=== PATIENT | male | born 1985 | race Caucasian/White ===

== ENCOUNTER → 2020-04-21 15:54 | Outpatient (BNVA) | payer OTHER, SELFPAY | PROVIDERS: Family Provider Family Medicine; Visit Provider Nurse Practitioner Family | DX: Z20.828 Contact with and (suspected) exposure to other viral communicable diseases (principal) | CPT/HCPCS: 87635 ==

== ENCOUNTER 2020-05-18 08:46 | Inpatient (IN) | payer OTHER, SELFPAY ==
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
[2020-05-18 09:01] VITALS: BP 117/84; PULSE 91; RESP 18; TEMP 37.1; O2SAT 95; BMI 28.7
--- NOTE | 2020-05-18 09:13 | PC.NURSE ---
See Sara aCzares at [facility]
[2020-05-18 09:14] VITALS: BP 117/84; PULSE 90; RESP 18; TEMP 37.1; O2SAT 95
[2020-05-18 09:20] LABS: Add Urine Microscopic? NO
[2020-05-18 09:21] VITALS: BP 120/76; PULSE 90; RESP 18
[2020-05-18 09:21] LABS: Basophils # 0.1 10^3/uL (0.0-0.1); Basophils % 1.1 %; Eosinophils # 0.3 10^3/uL (0.0-0.8); Eosinophils % 3.6 %; Hemoglobin 14.7 g/dL (11.7-16.6); Lymphocytes # 2.2 10^3/uL (0.8-4.8); Lymphocytes % 29.4 %; Mean Corpuscular Hemoglobin 28.5 pg (28.0-34.0); Mean Corpuscular Volume 89.1 fL (80-94); Mean Platelet Volume 11.5 fL (7.4-10.4); Monocytes # 0.5 10^3/uL (0.2-0.9); Monocytes % 7.1 %; Nucleated Red Blood Cells % 0 %; Platelet Count 245 10^3/cmm (130-400); Red Blood Count 5.16 10^6/uL (4.1-5.3); Red Cell Distribution Width 11.8 % (12.1-15.1); White Blood Count 7.5 10^3/uL (4.0-10.0)
[2020-05-18 09:38] LABS: Bilirubin Urine Neg (Negative); Blood Urine Neg (Negative); Glucose Urine UA Norm (Normal); Ketones Urine Negative (Negative); Leukocyte Esterase Urine Negative (Negative); Nitrate Urine Negative (Negative); Protein Urine Neg (Negative); Urine Appearance Clear (CLEAR); Urine Color Yellow (Yellow); Urobilinogen Urine Norm (Negative); pH Urine 6 (5-7)
[2020-05-18 09:44] LABS: Alanine Aminotransferase 19 U/L (0-41); Albumin Level 4.4 g/dL (3.5-5.2); Alkaline Phosphatase 107 IU/L (40-130); Anion Gap 14.1 (5-19); Aspartate Amino Transferase 19 U/L (0-40); Blood Urea Nitrogen 14 mg/dL (6-20); Calcium 9.6 mg/dL (8.5-10.5); Carbon Dioxide 26 mmol/L (22-29); Chloride 101 mmol/L (98-107); Creatinine Clr Calc Pharmacy 150.1635; Globulin 3.2 g/dL (1.3-4.6); Glucose 109 mg/dL (65-115); Osmolality Calculated 285 mOsm/kg (285-295); Potassium 4.1 mmol/L (3.5-5.1); Sodium 137 mmol/L (136-145); Total Bilirubin 0.5 mg/dL (0.15-1.2); Total Protein 7.6 g/dL (6.6-8.7)
[2020-05-18 09:46] LABS: Acetaminophen < 5.0 ug/mL (10-30); Alcohol Level < 10 mg/dL (0-10); Salicylate < 0.3 mg/dL (3-10)
[2020-05-18 09:47] LABS: Amphetamines Screen Urine Negative (Negative); Barbiturates Screen Urine Negative (Negative); Benzodiazepines Screen Urine Negative (Negative); Cocaine Screen Urine Negative (Negative); Opiate Screen Urine Negative (Negative); PCP Screen Urine Negative (Negative); THC Screen Urine Negative (Negative)
[2020-05-18 12:08] VITALS: BP 121/82; PULSE 76; RESP 18; TEMP 36.6; O2SAT 97
[2020-05-18 13:33] VITALS: BP 120/80; PULSE 78; RESP 18; TEMP 36.6; O2SAT 98
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
[2020-05-18] MEDS: ARIPiprazole 2 mg Tablet PO (14:32)
[2020-05-18 19:43] VITALS: BP 112/70; PULSE 64; RESP 15; O2SAT 96
[2020-05-18] MEDS: mirtazapine 15 mg Tablet PO (20:30)
[2020-05-19 06:00] VITALS: BP 125/77; PULSE 61; RESP 15; TEMP 36.7; O2SAT 95
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
[2020-05-19 10:21] VITALS: BP 125/77; PULSE 61; RESP 15; TEMP 36.7; O2SAT 95
== END 2020-05-19 11:50 | disposition home or self-care (01) | DRG 881 ==
LOC: ER 10:45 → NP 11:38
PROVIDERS: Admitting Provider Psychiatry & Neurology Psychiatry; Emergency Provider Physician Assistant; Family Provider Family Medicine; Visit Provider Psychiatry & Neurology Psychiatry
DX: F34.1 Dysthymic disorder (principal); R45.851 Suicidal ideations; F32.9 Major depressive disorder, single episode, unspecified; Z87.820 Personal history of traumatic brain injury; K40.90 Unilateral inguinal hernia, without obstruction or gangrene, not specified as recurrent
CPT/HCPCS: 12345; 80053; 80306; 80307; 81003; 85025; 99284

== ENCOUNTER 2020-05-21 18:22 | Inpatient (IN) | payer OTHER, SELFPAY ==
[2020-05-21 18:27] VITALS: BP 127/77; PULSE 71; RESP 18; TEMP 36.3; O2SAT 98; BMI 25.8
--- NOTE | 2020-05-21 18:57 | W.ED.PSYCH ---
HPI - Psych General: Chief Complaint: Psychiatric Symptoms Stated Complaint: SI/HI Time Seen by Provider: 05/21/20 18:31 Source: patient Mode of arrival: ambulatory Limitations: no limitations History of Present Illness: HPI Narrative: 34-year-old male states has been having increasing depression with suicidal thoughts. His caught him today try to take pills to kill himself. He did not end up taking any. He is also had aggressive behaviors towards her son. Patient denies any medical complaints at this time. Denies any worsening or improving factors. MD complaint: suicidal ideation Associated symptoms: Reports depression and suicidal ideation Review of Systems Const: Denies: fever(s), chills, body aches or change in appetite Eyes: Denies: blurry vision or eye discomfort ENMT: Denies: throat pain or dental pain Card: Denies: chest pain Resp: Denies: dyspnea GI: Denies: abdominal pain, nausea, vomiting or diarrhea : Denies: dysuria Musc: Denies: neck pain or back pain Skin/Breast: Denies: rash Neuro: Denies: headache(s) Psych: Reports: depression and suicidal ideation Renato/Lymph: Denies: easy bruising All/Imm: Denies: urticaria PFSH ED PFSH: Medical History (Updated 05/21/20 @ 20:15 by Jayla Swain MD) Right inguinal hernia Family History Denies family history of Anesthesia complication Bleeding disorder Social History Smoking and tobacco status: never smoked Second hand smoke exposure: No Alcohol intake: never Desire information about alcohol rehabilitation?: No Desire information about substance/drug rehabilitation?: No Adopted: No Caregiver/support person: Yes Lives independently: Yes Household members: spouse Housing: House Marital status: Highest education level completed: High School Graduate service: No Current occupational status: employed Current occupation: [employer] Current occupational exposures/hazards: No Pets and animals: Yes History of recent travel: Yes Leisure activites: exercise, hunting and fishing Sexually active: Yes Current gender identity: Male Doreen/Zoroastrianism: Caodaism Special doreen needs: No Agree to transfusion: No Financial difficulty paying for basics: Not Very Hard Physical Exam Const: COMMON NORMALS: no acute distress, patient oriented x3 and healthy appearing HENMT: COMMON NORMALS: normocephalic and atraumatic HEAD & SCALP: normocephalic and atraumatic Eye: COMMON NORMALS: Equal, round and reactive pupils present and EOMs intact bilaterally PUPIL: Yes Equal, round and reactive pupils present Neck/C-Spine: COMMON NORMALS: full ROM and supple Chest: COMMONS NORMALS: normal inspection of the chest and normal palpation of entire chest wall Resp: COMMON NORMALS: normal respiratory effort, No retractions, No use of accessory muscles and clear to auscultation bilaterally AUSCULTATION: clear to auscultation bilaterally Cardio: COMMON NORMALS: regular rate, regular rhythm and No murmurs present (Cardio) RATE: regular rate RHYTHM: regular rhythm GI: COMMON NORMALS: Normal to inspection, nondistended, normoactive bowel sounds present, Soft to palpation, non-tender and no masses PALPATION: Yes Soft to palpation Extremity: COMMON NORMALS: normal to inspection and full ROM Neuro: COMMON NORMALS: patient oriented x3, moves all extremities and no focal motor deficits Psych: COMMON NORMALS: mental status grossly normal, Normal thought process present and cooperative MOOD & AFFECT: Yes depressed mood THOUGHT PROCESS: Normal thought process present THOUGHT CONTENT: Yes Suicidality present Skin: COMMON NORMALS: no rashes or lesions noted and no wounds GENERAL SKIN EXAM: no rashes or lesions noted MDM - Psych MDM Narrative: Medical decision making narrative: Patient presents here with suicidal ideations and voluntarily wants to be admitted. Patient is well-appearing here in and his blood work is negative. I spoke to Dr. Contreras of psychiatry and will admit to the psychiatric unit. Patient is voluntary. Lab Data: Labs: Lab Results 05/21/20 05/21/20 Range/Units 19:22 19:22 WBC 11.0 H (4.0-10.0) 10^3/ uL RBC 5.19 (4.1-5.3) 10^6/u L Hgb 14.7 (11.7-16.6) g/dL Hct 45.9 (42.0-52.0) % MCV 88.4 (80-94) fL MCH 28.3 (28.0-34.0) pg MCHC 32.0 (30.0-36.0) g/dL RDW 11.7 L (12.1-15.1) % Plt Count 245 (130-400) 10^3/c mm MPV 12.0 H (7.4-10.4) fL Neut % (Auto) 54.0 % Lymph % (Auto) 31.6 % [place] % (Auto) 7.8 % Eos % (Auto) 2.9 % Baso % (Auto) 0.8 % Neut # (Auto) 5.95 (1.8-7.7) 10^3/u L Lymph # (Auto) 3.5 (0.8-4.8) 10^3/u L [place] # (Auto) 0.9 (0.2-0.9) 10^3/u L Eos # (Auto) 0.3 (0.0-0.8) 10^3/u L Baso # (Auto) 0.1 (0.0-0.1) 10^3/u L Nucleated RBC % (a uto) 0 % Nucleated RBCs # 0.0 /100WBC Sodium 140 (136-145) mmol/L Potassium 4.4 (3.5-5.1) mmol/L Chloride 101 (98-107) mmol/L Carbon Dioxide 29 (22-29) mmol/L Anion Gap 14.4 (5-19) BUN 14 (6-20) mg/dL Creatinine 0.9 (0.7-1.2) mg/dL GFR Calculation 97.8 (90-130) mL/min Glucose 102 (65-115) mg/dL Calculated Osmolal ity 291 (285-295) mOsm/k g Calcium 10.1 (8.5-10.5) mg/dL Total Bilirubin 0.2 (0.15-1.2) mg/dL AST 19 (0-40) U/L ALT 20 (0-41) U/L Alkaline Phosphata se 119 (40-130) IU/L Total Protein 7.7 (6.6-8.7) g/dL Albumin 4.5 (3.5-5.2) g/dL Globulin 3.2 (1.3-4.6) g/dL Salicylates < 0.3 L (3-10) mg/dL Acetaminophen < 5.0 L (10-30) ug/mL Ethyl Alcohol < 10 (0-10) mg/dL Discharge Plan Discharge Patient Disposition: Admitted As Inpatient Clinical Impression: Suicidal ideation Condition: Stable Referrals: Alexis Isaac [Primary Care Provider] - Coding Level of Care Code ED Electronic Typesetting Machine Operator for Chg Fwd Exam Comprehensive
[2020-05-21 19:40] LABS: Basophils # 0.1 10^3/uL (0.0-0.1); Basophils % 0.8 %; Eosinophils # 0.3 10^3/uL (0.0-0.8); Eosinophils % 2.9 %; Hematocrit 45.9 % (42.0-52.0); Hemoglobin 14.7 g/dL (11.7-16.6); Lymphocytes # 3.5 10^3/uL (0.8-4.8); Lymphocytes % 31.6 %; Mean Corpuscular Hemoglobin 28.3 pg (28.0-34.0); Mean Corpuscular Volume 88.4 fL (80-94); Monocytes # 0.9 10^3/uL (0.2-0.9); Monocytes % 7.8 %; Neutrophils # 5.95 10^3/uL (1.8-7.7); Nucleated Red Blood Cells % 0 %; Platelet Count 245 10^3/cmm (130-400); Red Blood Count 5.19 10^6/uL (4.1-5.3); Red Cell Distribution Width 11.7 % (12.1-15.1)
[2020-05-21 20:12] LABS: Alanine Aminotransferase 20 U/L (0-41); Albumin Level 4.5 g/dL (3.5-5.2); Alkaline Phosphatase 119 IU/L (40-130); Anion Gap 14.4 (5-19); Aspartate Amino Transferase 19 U/L (0-40); Blood Urea Nitrogen 14 mg/dL (6-20); Calcium 10.1 mg/dL (8.5-10.5); Carbon Dioxide 29 mmol/L (22-29); Chloride 101 mmol/L (98-107); Creatinine Clr Calc Pharmacy 127.4313; Globulin 3.2 g/dL (1.3-4.6); Glomerular Filtration Rate 97.8 mL/min (90-130); Glucose 102 mg/dL (65-115); Osmolality Calculated 291 mOsm/kg (285-295); Potassium 4.4 mmol/L (3.5-5.1); Sodium 140 mmol/L (136-145); Total Bilirubin 0.2 mg/dL (0.15-1.2); Total Protein 7.7 g/dL (6.6-8.7)
[2020-05-21 20:22] LABS: Acetaminophen < 5.0 ug/mL (10-30); Alcohol Level < 10 mg/dL (0-10); Salicylate < 0.3 mg/dL (3-10)
[2020-05-21 21:54] VITALS: BP 122/87; PULSE 89; RESP 16; O2SAT 99
[2020-05-21 22:12] VITALS: BP 115/71; PULSE 69; RESP 13; TEMP 36.6; O2SAT 97
[2020-05-22] MEDS: mirtazapine 15 mg Tablet PO ×2 (01:09→20:52)
[2020-05-22 06:00] VITALS: BP 104/70; PULSE 78; RESP 15; TEMP 36.2; O2SAT 96
[2020-05-22] MEDS: escitalopram 10 mg Tablet 20 MG PO (08:07)
[2020-05-22 13:36] VITALS: BP 112/77; PULSE 88; RESP 18; TEMP 37.1; O2SAT 94
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
[2020-05-22 20:02] VITALS: BP 119/79; PULSE 81; RESP 17; TEMP 37; O2SAT 94
--- NOTE | 2020-05-22 22:12 | PC.NURSE ---
ASSESSMENT PHYSICAL ASSESSMENT UNREMARKABLE. PT STATES THAT HE IS HERE BECAUSE HE IS HAVING EPISODES OF EXPLOSIVE ANGER AND MAY NEED HIS MEDICATION ADJUSTED. HE IS TALKATIVE, JOKES WITH STAFF, AND IS EASY TO ENGAGE. HIS GAIT IS AFFECTED BY HIS PAST TBI AND HIS THOUGHT PATTERN SOMETIMES IS DISORGANIZED.
[2020-05-23 05:18] VITALS: BP 112/70; PULSE 70; RESP 16; TEMP 37; O2SAT 94
[2020-05-23] MEDS: escitalopram 10 mg Tablet 20 MG PO (07:40)
[2020-05-23 14:00] VITALS: BP 101/73; PULSE 101; RESP 18; TEMP 36.8; O2SAT 97
--- NOTE | 2020-05-23 18:55 | PM.NPN ---
Subjective NPU Subjective: Interval history: Ac presents today reporting that he is feeling a lot better. We figured out that he had misunderstood things during his last hospitalization and had stopped taking his Lexapro. He then started having the suicidal thinking reports he is feeling better with the Lexapro resumed and understands now that he was supposed to take both the medication. He denies having any lethality currently reports an openness to ongoing treatment but hopes of possibly leaving tomorrow. Mental Status Exam MSE Comments: This is a well-nourished well-developed white male with adequate dress, grooming and eye contact. No abnormal movements except for resolving psychomotor retardation, cooperative ooperative with exam in no acute distress. Speech was more normal rate and volume with \ dysarthria. Mood described as a little better, affect congruent. Thought process organized. Thought content: Patient denied suicidal or homicidal ideation, there were no delusions reported or noted, he denied any auditory hallucinations. Attention and concentration were intact and memory was more reliable but none were formally tested. He is alert and oriented x3. Insight and judgment improving, impulse control limited but improving. Vitals/I&O/Wt Last Vital Signs Temp 98.3 F 05/23/20 14:00 Pulse 101 H 05/23/20 14:00 Resp 18 05/23/20 14:00 BP 101/73 05/23/20 14:00 Pulse Ox 97 05/23/20 14:00 05/23/20 05/23/20 05/23/20 06:59 14:59 22:59 Intake Total 360 / 360 Balance 360 / 360 Data NPU : 05/21/20 19:22 05/21/20 19:22 A&P Additional A&P Information (1) Suicidal ideation: (2) Major depression: (3) Dysthymic disorder: This is a 34-year-old white male who presents to the unit having recently been discharged reporting suicidal thoughts without any cause reporting an openness to try some different medications. 1. Continue current medication. We now understand that his error was in not taking the Lexapro which has been restored. 2. Continue every 15 minute checks for safety. 3. Encourage individual, group and milieu therapy. 4. Gather some collateral information from family. Involuntary Hold Information 96 Hour Hold: 96 Hour Involuntary Admission: No Attestations NPU Medical Necessity Statement*: Inpatient hospitalization is medically necessary and the clinically appropriate intervention at this time. We will monitor medications make changes as indicated. Likely length of stay 2-4 days. Coding Level of Care Code Acute Building Associate for Palmer Obando
[2020-05-23 19:34] VITALS: BP 107/67; PULSE 75; RESP 16; TEMP 36.9; O2SAT 95
--- NOTE | 2020-05-23 20:38 | PC.NURSE ---
Pt denies AH, VH, SI, HI. Reports feeling down because he is not home taking care of his family and that he has to be here for treatment. Pt reports feeling better since he started current medications and that he feels that he will be successful when he is released if he has support. He feels ashamed that he had anger outbursts.He will continue care when he is released.
[2020-05-23] MEDS: mirtazapine 15 mg Tablet PO (20:47)
[2020-05-24 06:00] VITALS: BP 93/59; PULSE 67; RESP 17; TEMP 36.9; O2SAT 92
[2020-05-24] MEDS: escitalopram 10 mg Tablet 20 MG PO (08:50)
[2020-05-24 14:00] VITALS: BP 130/75; PULSE 82; RESP 20; TEMP 36.9; O2SAT 98
--- NOTE | 2020-05-24 17:47 | P.PN_ITS ---
Subjective NPU Subjective: Interval history: Ac presents today reporting that he is feeling a little better on the medication. He reports he does want to continue the new visual after he discharges but feels that this probably reduced dose. He reports he is starting to feel more like himself and his came and we were able to speak about a plan. We discussed the risks, benefits and a lternatives of discharging in the morning and he understood and agreed to proceed as documented in his note. He also were desirous of a referral to a TBI clinic of some sort and says they were willing to travel to the closest larger town that would have 1. He reports he is eating better and sleeping fine. Mental Status Exam MSE Comments: This is a well-nourished well-developed white male with adequate dress, grooming and eye contact. No abnormal movements except for last psychomotor retardation but with deliberate ambulation consistent with a TBI, cooperative with exam in no acute distress. Speech was more normal rate and volume with dysarthria. Mood described as starting to feel more like myself, affect euthymic. Thought process organized. Thought content: Patient denied suicidal or homicidal ideation, there were no delusions reported or noted, he denied any auditory hallucinations. Attention and concentration were intact and memory was more reliable but none were formally tested. He is alert and oriented x3. Insight and judgment improving, impulse control limited but improving. Vitals/I&O/Wt Last Vital Signs Temp 97.6 F 05/24/20 20:54 Pulse 85 05/24/20 20:54 Resp 17 05/24/20 20:54 BP 131/81 05/24/20 20:54 Pulse Ox 95 05/24/20 20:54 Data NPU : 05/21/20 19:22 05/21/20 19:22 A&P Additional A&P Information (1) Suicidal ideation: (2) Major depression: (3) Dysthymic disorder: This is a 34-year-old white male who presents to the unit having recently been discharged reporting suicidal thoughts without any cause reporting an openness to try some different medications. 1. Continue current medication. We now understand that his error was in not taking the Lexapro which has been restored. 2. Continue every 15 minute checks for safety. 3. Encourage individual, group and milieu therapy. 4. Gather some collateral information from family. 5. We will make sure he has an order for a lower dose of Nuvigil and plan for discharge in the morning. Involuntary Hold Information 96 Hour Hold: 96 Hour Involuntary Admission: No Attestations NPU Medical Necessity Statement*: Inpatient hospitalization is medically necessary and the clinically appropriate intervention at this time. We will monitor medications make changes as indicated. Likely length of stay 1-3 days. Coding Level of Care Code Acute Information Management Manager for Palmer Obando
[2020-05-24] MEDS: mirtazapine 15 mg Tablet PO (20:39)
[2020-05-24 20:54] VITALS: BP 131/81; PULSE 85; RESP 17; TEMP 36.4; O2SAT 95
--- NOTE | 2020-05-24 21:03 | PC.NURSE ---
Pt denies anger. Denies SI/HI. Denies AH/VH. Pt states, Im ready to go home. Cooperative and calm. He is resting.
[2020-05-25 06:00] VITALS: BP 99/55; PULSE 77; RESP 16; TEMP 36.6; O2SAT 95
[2020-05-25] MEDS: escitalopram 10 mg Tablet 20 MG PO (08:06)
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
[2020-05-25 09:19] VITALS: BP 99/55; PULSE 77; RESP 16; TEMP 36.6; O2SAT 95
[2020-05-25 09:22] VITALS: BP 99/55; PULSE 77; RESP 16; TEMP 36.6; O2SAT 95
== END 2020-05-25 10:05 | disposition home or self-care (01) | DRG 881 ==
LOC: ER 20:15 → NP 21:09
PROVIDERS: Emergency Medicine; Admitting Provider Psychiatry & Neurology Psychiatry; PCP Family Medicine; Visit Provider Psychiatry & Neurology Psychiatry
DX: F32.9 Major depressive disorder, single episode, unspecified (principal); R45.851 Suicidal ideations; Z87.820 Personal history of traumatic brain injury; K40.90 Unilateral inguinal hernia, without obstruction or gangrene, not specified as recurrent; F34.1 Dysthymic disorder
CPT/HCPCS: 12345; 36415; 80053; 80307; 85025; 90471; 90686; 99284

== ENCOUNTER 2022-01-18 19:04 | Inpatient (IN) | payer OTHER, SELFPAY ==
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
[2022-01-18 19:37] VITALS: BP 111/76; PULSE 87; RESP 16; TEMP 36.7; O2SAT 94; BMI 34.4
[2022-01-18 20:12] LABS: Basophils # 0.1 10^3/uL (0.0-0.1); Basophils % 0.6 %; Eosinophils # 0.2 10^3/uL (0.0-0.8); Eosinophils % 1.2 %; Hematocrit 42.5 % (42.0-52.0); Hemoglobin 14.5 g/dL (11.7-16.6); Lymphocytes # 3.6 10^3/uL (0.8-4.8); Lymphocytes % 25.6 %; Mean Corpuscular HGB Conc 34.1 g/dL (30.0-36.0); Mean Corpuscular Hemoglobin 27.9 pg (28.0-34.0); Mean Corpuscular Volume 81.7 fl (80-94); Mean Platelet Volume 11.8 fL (7.4-10.4); Monocytes # 0.9 10^3/uL (0.2-0.9); Monocytes % 6.6 %; Neutrophils # 8.81 10^3/uL (1.8-7.7); Neutrophils % 63.4 %; Nucleated Red Blood Cells % 0 %; Platelet Count 257 10^3/cmm (130-400); White Blood Count 13.9 10^3/uL (4.0-10.0)
[2022-01-18 20:21] LABS: Amphetamines Screen Urine Negative (Negative); Barbiturates Screen Urine Negative (Negative); Benzodiazepines Screen Urine Negative (Negative); Cocaine Screen Urine Negative (Negative); Opiate Screen Urine Negative (Negative); PCP Screen Urine Negative (Negative); THC Screen Urine Negative (Negative)
[2022-01-18 20:39] LABS: Acetaminophen < 5.0 ug/mL (10-30); Alanine Aminotransferase 30 U/L (0-41); Albumin Level 4.6 g/dL (3.5-5.2); Alcohol Level < 10 mg/dL (0-10); Alkaline Phosphatase 101 IU/L (40-130); Anion Gap 14.7 (5-19); Aspartate Amino Transferase 18 U/L (0-40); Blood Urea Nitrogen 12 mg/dL (6-20); Calcium 9.4 mg/dL (8.5-10.5); Carbon Dioxide 24 mmol/L (22-29); Chloride 104 mmol/L (98-107); Globulin 3.3 g/dL (1.3-4.6); Glomerular Filtration Rate 96.6 mL/min (90-130); Glucose 106 mg/dL (65-115); Osmolality Calculated 288 mOsm/kg (285-295); Potassium 3.7 mmol/L (3.5-5.1); Salicylate < 0.3 mg/dL (3-10); Sodium 139 mmol/L (136-145); Thyroid Stimulating Hormone 3.05 uIU/mL (0.27-4.20); Total Bilirubin 0.4 mg/dL (0.15-1.2); Total Protein 7.9 g/dL (6.6-8.7)
[2022-01-18 21:56] VITALS: BP 116/74; PULSE 83; RESP 18; O2SAT 93
[2022-01-18 22:45] VITALS: BP 116/74; PULSE 83; RESP 18; O2SAT 93
[2022-01-18 22:56] VITALS: BP 125/85; PULSE 78; RESP 18; TEMP 36.5; O2SAT 99
[2022-01-18] MEDS: mirtazapine 15 mg Tablet PO (23:42)
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
[2022-01-19 06:00] VITALS: BP 101/59; PULSE 61; RESP 16; TEMP 36.7; O2SAT 94; BMI 34.4
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
[2022-01-19 14:00] VITALS: BP 148/80; PULSE 84; RESP 16; TEMP 36.9; O2SAT 94
[2022-01-19 20:03] VITALS: BP 98/61; PULSE 88; RESP 19; TEMP 36.6; O2SAT 97
[2022-01-19] MEDS: mirtazapine 15 mg Tablet PO (20:35)
[2022-01-19] MEDS: trazodone 50 mg Tablet PO (20:35)
[2022-01-19] MEDS: OLANZapine 5 mg TABLET PO (20:38)
[2022-01-20 06:00] VITALS: BP 102/60; PULSE 68; RESP 17; TEMP 36.8; O2SAT 96
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
[2022-01-20 14:00] VITALS: BP 120/63; PULSE 71; RESP 17; TEMP 36.7; O2SAT 97
[2022-01-20] MEDS: trazodone 50 mg Tablet PO (20:33)
[2022-01-20] MEDS: OLANZapine 5 mg TABLET PO (20:33)
[2022-01-20] MEDS: mirtazapine 15 mg Tablet PO (20:33)
[2022-01-20 22:00] VITALS: BP 113/80; PULSE 94; RESP 17; TEMP 36.6; O2SAT 95
[2022-01-21 06:00] VITALS: BP 103/69; PULSE 69; RESP 16; TEMP 36.6; O2SAT 95
[2022-01-21 14:00] VITALS: BP 105/74; PULSE 91; RESP 17; TEMP 36.6; O2SAT 94
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
[2022-01-21] MEDS: divalproex ER 500 mg Tablet (24H) PO (18:49)
[2022-01-21 19:55] VITALS: BP 104/77; PULSE 99; RESP 16; TEMP 36.7; O2SAT 93
[2022-01-21] MEDS: mirtazapine 15 mg Tablet PO (20:34)
[2022-01-21] MEDS: trazodone 50 mg Tablet PO (20:34)
[2022-01-21] MEDS: OLANZapine 5 mg TABLET PO (20:34)
[2022-01-22 06:00] VITALS: BP 112/65; PULSE 90; RESP 16; TEMP 36.5; O2SAT 93
[2022-01-22] MEDS: divalproex ER 500 mg Tablet (24H) 1000 MG PO (09:13)
[2022-01-22 14:00] VITALS: BP 114/76; PULSE 90; RESP 17; TEMP 36.6; O2SAT 96
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
[2022-01-22 19:52] VITALS: BP 106/74; PULSE 100; RESP 20; TEMP 37.3; O2SAT 96
[2022-01-22] MEDS: OLANZapine 5 mg TABLET PO (20:10)
[2022-01-22] MEDS: mirtazapine 15 mg Tablet 30 MG PO (20:10)
[2022-01-23 06:00] VITALS: BP 105/64; PULSE 69; RESP 18; TEMP 36.7; O2SAT 93
[2022-01-23] MEDS: divalproex ER 500 mg Tablet (24H) 1500 MG PO (08:21)
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
[2022-01-23 14:00] VITALS: BP 115/84; PULSE 89; RESP 18; TEMP 36.6; O2SAT 96
[2022-01-23] MEDS: acetaminophen 325 mg Tablet 650 MG PO (17:42)
[2022-01-23 20:27] VITALS: BP 123/87; PULSE 96; RESP 16; TEMP 36.4; O2SAT 94
[2022-01-23] MEDS: OLANZapine 5 mg TABLET PO (20:31)
[2022-01-23] MEDS: mirtazapine 15 mg Tablet 30 MG PO (20:31)
[2022-01-23 21:38] VITALS: BP 123/87; PULSE 96; RESP 16; TEMP 36.4; O2SAT 94
[2022-01-24 06:00] VITALS: BP 105/69; PULSE 79; RESP 16; TEMP 36.6; O2SAT 98
[2022-01-24] MEDS: divalproex ER 500 mg Tablet (24H) 1500 MG PO (10:22)
[2022-01-24 10:48] LABS: Valproic Acid Level 53.6 ug/mL (50-100)
[2022-01-24 13:04] LABS: Alanine Aminotransferase 24 U/L (0-41); Albumin Level 4.8 g/dL (3.5-5.2); Alkaline Phosphatase 103 IU/L (40-130); Aspartate Amino Transferase 13 U/L (0-40); Globulin 3.2 g/dL (1.3-4.6); Total Bilirubin 0.4 mg/dL (0.15-1.2)
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
[2022-01-24 13:21] VITALS: BP 105/69; PULSE 79; RESP 16; TEMP 36.6; O2SAT 98
[2022-01-24 13:25] VITALS: BP 106/71; PULSE 84; RESP 17; TEMP 36.6; O2SAT 94
[2022-01-24 13:31] LABS: Basophils # 0.1 10^3/uL (0.0-0.1); Basophils % 0.9 %; Eosinophils # 0.1 10^3/uL (0.0-0.8); Eosinophils % 1.4 %; Hematocrit 42.8 % (42.0-52.0); Hemoglobin 14.6 g/dL (11.7-16.6); Lymphocytes # 2.4 10^3/uL (0.8-4.8); Lymphocytes % 23.6 %; Mean Corpuscular HGB Conc 34.1 g/dL (30.0-36.0); Mean Platelet Volume 11.6 fL (7.4-10.4); Monocytes # 0.8 10^3/uL (0.2-0.9); Monocytes % 7.9 %; Neutrophils # 6.38 10^3/uL (1.8-7.7); Nucleated Red Blood Cells % 0 %; Platelet Count 252 10^3/cmm (130-400); Red Blood Count 5.22 10^6/uL (4.1-5.3); Red Cell Distribution Width 12.1 % (12.1-15.1); White Blood Count 10.3 10^3/uL (4.0-10.0)
== END 2022-01-24 15:21 | disposition home or self-care (01) | DRG 881 ==
LOC: ER 21:11 → NP 21:45
PROVIDERS: Admitting Provider Psychiatry & Neurology Psychiatry; Emergency Provider Emergency Medicine; PCP Family Medicine; Visit Provider Psychiatry & Neurology Psychiatry
DX: F32.A Depression, unspecified (principal); R45.851 Suicidal ideations; Z87.820 Personal history of traumatic brain injury; Z63.0 Problems in relationship with spouse or partner; Z81.1 Family history of alcohol abuse and dependence; F34.1 Dysthymic disorder; F06.30 Mood disorder due to known physiological condition, unspecified; S06.9X5S Unspecified intracranial injury with loss of consciousness greater than 24 hours with return to pre-existing conscious level, sequela; V49.9XXS Car occupant (driver) (passenger) injured in unspecified traffic accident, sequela
CPT/HCPCS: 36415; 80053; 80076; 80164; 80306; 80307; 84443; 85025; 97150; 97165; 99285